=== PATIENT | male | born 1965 | race Caucasian/White ===

== ENCOUNTER 2022-06-23 15:38 | Emergency (ER) | payer MEDICARE, SELFPAY ==
[2022-06-23 15:43] VITALS: BP 191/97; PULSE 95; RESP 20; TEMP 36.6; O2SAT 98
--- NOTE | 2022-06-23 16:30 | ED.EYEPROB ---
HPI - Eye Problem General Chief complaint: Eye Problems Stated complaint: something in eye Time Seen by Provider: 06/23/22 16:26 Source: patient Mode of arrival: ambulatory Limitations: no limitations History of Present Illness HPI Narrative: Patient is a 56-year-old male with a history of hypertension, hyperlipidemia, insulin-dependent diabetes, presenting to the emergency department for evaluation of left eye pain. Patient reports he was cutting his grass when he felt a foreign body sensation in his left eye with immediate pain. Patient was wearing his corrective lenses at the time he was mowing. Patient states he then rubbed his eye with worsening pain. Patient denies blurry or double vision. Patient does report mild redness and tearing of the eye. No discharge. He is not up-to-date on a tetanus. Related Data Home Medications Medication Instructions Recorded Confirmed aspirin 81 mg tablet,delayed 81 mg PO DAILY 05/10/19 02/16/22 release niacin 500 mg tablet 500 mg PO DAILY 05/10/19 02/16/22 omeprazole magnesium 20 mg 20 mg PO DAILY 05/10/19 02/16/22 tablet,delayed release (Prilosec OTC) insulin NPH isoph U-100 human 100 10 unit subcut DAILY 01/12/22 02/16/22 unit/mL subcutaneous suspension (Novolin N NPH U-100 Insulin isophane) Allergies Allergy/AdvReac Type Severity Reaction Status Date / Time No Known Allergies Allergy Verified 05/12/22 09:32 Review of Systems Review of Systems: CONSTITUTIONAL: Denies fever HEENT: Left eye pain CARDIOVASCULAR: Denies chest pain RESPIRATORY: Denies cough or dyspnea. GASTROINTESTINAL: Denies abdominal pain SKIN: Denies rash MUSCULOSKELETAL: Denies back pain NEUROLOGIC: Denies headache [facility] Past Medical History Medical History COPD not affecting current episode of care Diabetic nephropathy Morbid obesity Other atherosclerosis of [place] arteries of extremities, right leg Family History Family History Mother Family history of malignant neoplasm Social History Social History Social History: Caffeine-coffee daily Years smoked: 20 Smoking status: Current every day smoker Tobacco type: cigarettes Alcohol intake: current Alcohol use details: socailly Substance use: never Lack of Transportation: No Lack of Food: Never True Current Housing: I Have Housing Concerned About Future Housing: No Difficulty Paying Gas/Electric Bills: No Difficulty Paying for Meds: No Currently Unemployed: No Education: High School Diploma/GED Difficulty w/ Childcare or Family Care: No Living arrangements: alone Exam Narrative: GENERAL: Awake, alert, conversant HEAD: Normocephalic, atraumatic. EYES:EOMI. Mild conjunctival injection left eye. No discharge. Right conjunctive is normal. No subconjunctival hemorrhage. No hyphema. Pupil is 2+ equal and reactive to light bilaterally. ENT: Nares clear, no rhinorrhea or epistaxis. Mucous membranes moist. NECK: Supple. CHEST: No respiratory distress, breathing even and non labored HEART: Regular rate, sinus rhythm ABDOMEN:Non distended, non tender EXTREMITIES: Normal range of motion. No edema. SKIN: Warm, dry, no rash. NEURO:No focal deficits. Alert and oriented x3 Course Vital Signs Vital signs: Vital Signs Temperature 36.6 C 06/23/22 15:43 Pulse Rate 95 06/23/22 15:43 Respiratory Rate 20 06/23/22 15:43 Blood Pressure 191/97 H 06/23/22 15:43 Pulse Oximetry 98 06/23/22 15:43 Oxygen Delivery Room Air 06/23/22 15:43 Temperature 36.6 C 06/23/22 15:43 Pulse Rate 95 06/23/22 15:43 Respiratory Rate 20 06/23/22 15:43 Blood Pressure 191/97 H 06/23/22 15:43 Pulse Oximetry 98 06/23/22 15:43 Oxygen Delivery Room Air 06/23/22 15:43 MDM - Eye Problem MDM Narrative Medical decision
[2022-06-23] MEDS: TETANUS,DIPHTHERIA,AC PERTUSSIS ADULT (0.5 ML) BOOSTRIX IM (17:23)
== END 2022-06-23 17:36 | disposition home or self-care (01) ==
PROVIDERS: Emergency Provider Emergency Medicine; PCP Family Medicine
DX: S05.02XA Injury of conjunctiva and corneal abrasion without foreign body, left eye, initial encounter (principal); E78.5 Hyperlipidemia, unspecified; I10 Essential (primary) hypertension; Z23 Encounter for immunization; J44.9 Chronic obstructive pulmonary disease, unspecified; E11.21 Type 2 diabetes mellitus with diabetic nephropathy; I70.291 Other atherosclerosis of native arteries of extremities, right leg; E66.01 Morbid (severe) obesity due to excess calories; Z68.27 Body mass index [BMI] 27.0-27.9, adult; F17.210 Nicotine dependence, cigarettes, uncomplicated; Z79.82 Long term (current) use of aspirin; Z79.4 Long term (current) use of insulin; W20.8XXA Other cause of strike by thrown, projected or falling object, initial encounter
CPT/HCPCS: 90471; 90715; 99283; A9270

== ENCOUNTER 2022-07-17 09:22 | Emergency (ER) | payer MEDICARE, SELFPAY ==
[2022-07-17 09:29] VITALS: BP 176/82; PULSE 113; RESP 16; TEMP 36.7; O2SAT 95
[2022-07-17] MEDS: LIDOCAINE/PRILOCAINE CREAM 2.5-2.5% TUBE 1 EACH TOPICAL (09:46)
--- NOTE | 2022-07-17 09:50 | ED.SKABFB ---
HPI - Skin/Abscess/Foreign Bdy General Chief complaint: Skin/Abscess/Foreign Body Stated complaint: abcess Time Seen by Provider: 07/17/22 09:24 History of Present Illness HPI narrative: Patient is a 57-year-old male with history of diabetes here for evaluation of pain redness and swelling around his rectum x5 days. Patient states he saw his primary care doctor upon onset and was diagnosed with a perianal abscess. He was told it was not ready to be drained at that point so he is put on Augmentin. Patient has been taking the Augmentin as prescribed but the redness and swelling has worsened. He denies any nausea, vomiting, constipation, diarrhea or abdominal pain. Related Data Home Medications Medication Instructions Recorded Confirmed aspirin 81 mg tablet,delayed 81 mg PO DAILY 05/10/19 02/16/22 release niacin 500 mg tablet 500 mg PO DAILY 05/10/19 02/16/22 omeprazole magnesium 20 mg 20 mg PO DAILY 05/10/19 02/16/22 tablet,delayed release (Prilosec OTC) insulin NPH isoph U-100 human 100 10 unit subcut DAILY 01/12/22 02/16/22 unit/mL subcutaneous suspension (Novolin N NPH U-100 Insulin isophane) Allergies Allergy/AdvReac Type Severity Reaction Status Date / Time No Known Allergies Allergy Verified 07/13/22 11:53 Review of Systems Review of Systems: Gen: Denies fevers or chills Eyes: Denies eye pain or visual change ENT: Denies congestion Respiratory: Denies shortness of breath or cough CV: Denies chest pain or palpitations GI: Denies abdominal pain nausea, emesis or diarrhea reports perianal pain and swelling. Denies burning, urgency, frequency or hematuria Musculoskeletal: Denies back pain or muscle pain Neuro: Denies numbness, tingling, weakness or focal weakness Skin: Denies rash Except as documented, all other systems reviewed and negative [facility] Past Medical History Medical History COPD not affecting current episode of care Diabetic nephropathy Morbid obesity Other atherosclerosis of [place] arteries of extremities, right leg Family History Family History Mother Family history of malignant neoplasm Social History Social History Social History: Caffeine-coffee daily Years smoked: 20 Smoking status: Current every day smoker Tobacco type: cigarettes Alcohol intake: current Alcohol use details: socailly Substance use: never Lack of Transportation: No Lack of Food: Never True Current Housing: I Have Housing Concerned About Future Housing: No Difficulty Paying Gas/Electric Bills: No Difficulty Paying for Meds: No Currently Unemployed: No Education: High School Diploma/GED Difficulty w/ Childcare or Family Care: No Living arrangements: alone Exam Narrative: Gen: Alert, oriented, no acute distress Eyes: EOMI, no icterus Pulm: Respirations even and unlabored, symmetric thorax expansion, no audible stridor or visible cyanosis CV: Regular rate per telemetry GI: No distension, no voluntary/involuntary guarding Neuro: AOx4, moves all extremities without apparent difficulty or weakness, follows commands MSK: 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 This area is tender to palpation, no spontaneous drainage is noted. Psych: Normal mood/affect, insight/judgement good, adequate fund of knowledge, recent/remote memory intact Course Vital Signs Vital signs: Vital Signs Temperature 98.1 F 07/17/22 09:29 Pulse Rate 113 H 07/17/22 09:29 Respiratory Rate 16 07/17/22 09:29 Blood Pressure 176/82 H 07/17/22 09:29 Pulse Oximetry 95 07/17/22 09:29 Oxygen Delivery Room Air 07/17/22 09:29 Temperature 98.1 F 07/17/22 09:29 Pulse Rate 113 H 07/17/22 09:29
[2022-07-17] MEDS: HYDROcodone/acetaminophen (*CRX) 5-325 MG TABLET 1 TAB PO (09:55)
[2022-07-17 11:12] VITALS: BP 133/76; PULSE 85; RESP 18; O2SAT 96
== END 2022-07-17 11:21 | disposition home or self-care (01) ==
PROVIDERS: Emergency Provider Physician Assistant; PCP Family Medicine
DX: K61.0 Anal abscess (principal); J44.9 Chronic obstructive pulmonary disease, unspecified; E11.40 Type 2 diabetes mellitus with diabetic neuropathy, unspecified; E66.01 Morbid (severe) obesity due to excess calories; Z68.27 Body mass index [BMI] 27.0-27.9, adult; I70.291 Other atherosclerosis of native arteries of extremities, right leg; Z79.82 Long term (current) use of aspirin; Z79.4 Long term (current) use of insulin; F17.210 Nicotine dependence, cigarettes, uncomplicated
CPT/HCPCS: 46040; 46050; 99283; A9270

== ENCOUNTER 2022-07-21 10:40 | Day surgery (SDC) | payer MEDICARE, SELFPAY ==
[2022-07-21] VITALS (8 sets, daily range): BP systolic 121–158; BP diastolic 69–97; PULSE 61–83; RESP 12–20; TEMP 36.6–36.7; O2SAT 98–100; BMI 25.8
--- NOTE | 2022-07-21 11:31 | ECG_ITS ---
Measurements Intervals [place] Rate: 68 P: 53 IA: 168 QRS: -23 QRSD: 105 T: 14 QT: 370 QTc: 395 Interpretive Statements SINUS RHYTHM DELAYED PRECORDIAL R/S TRANSITION BORDERLINE ECG NO PREVIOUS ECG AVAILABLE FOR COMPARISON Electronically Signed On 07-21-2022 12:03:07 CDT by Charan Signh D.O.
[2022-07-21] MEDS: LACTATED RINGERS 1,000 ML 30 ML IV CONT ×2 (12:10→14:56)
[2022-07-21] MEDS: KETOROLAC 15 MG/ML VIAL (*BKC) IV PUSH (12:17)
--- NOTE | 2022-07-21 12:20 | SUR.PREOP ---
1145-PT STATES NO HEALTH CHANGES SINCE ER VISIT 07/17/22.
[2022-07-21 12:30] LABS: Anion Gap 9 mmol/L (8-16); Blood Urea Nitrogen 15 mg/dL (9-20); Calcium 9.2 mg/dL (8.4-10.2); Carbon Dioxide 26 mmol/L (22-30); Chloride 97 mmol/L (98-107); Estimated Glomerular Filt Rate > 60; Glucose 302 mg/dL (65-110); Potassium 4.3 mmol/L (3.4-5.0); Sodium 132 mmol/L (137-145)
--- NOTE | 2022-07-21 13:16 | WPDHPUPDATE1 ---
History and Physical Update Update Date/Time: 07/21/22 13:16 History and Physical has been reviewed, including an updated exam of the patient. There are NO changes in the patient's condition. Risks, benefits, and alternatives have been discussed and questions answered. Patient agrees to proceed with procedure.
--- NOTE | 2022-07-21 13:42 | WPDANESEPPF ---
Anes - Initial Pre Proc Eval Procedure: Operation Date: 07/21/22 13:30 Proposed Procedures p Drainage Veronica-Rectal Abscess, Possible Fistulotomy or Seton Placement - Yusef Barth MD Date/Time: 07/21/22 13:42 Surgeon: Yusef Barth MD Pre Op Diagnosis: veronica-rectal abcess, fistula in ano Patient Data Age: 57 Gender: M Height: 1.83 m Weight: 86.5 kg Last Vital Signs Temp 98.1 F 07/21/22 11:00 Pulse 83 07/21/22 11:00 Resp 20 07/21/22 11:00 BP 148/97 H 07/21/22 11:00 Pulse Ox 98 07/21/22 11:00 O2 Del Method Room Air 07/21/22 11:00 Allergies Allergy/AdvReac Type Severity Reaction Status Date / Time No Known Allergies Allergy Verified 07/21/22 11:53 Home Medications Medication Instructions Recorded Confirmed Type aspirin 81 mg tablet,delayed 81 mg PO DAILY 05/10/19 07/21/22 History release niacin 500 mg tablet 500 mg PO DAILY 05/10/19 07/21/22 History omeprazole magnesium 20 mg 20 mg PO DAILY 05/10/19 07/21/22 History tablet,delayed release (Prilosec OTC) insulin syringe-needle U-100 0.3 See Rx Instructions .Route 07/01/20 02/16/22 Rx mL 29 gauge .COMPLEX #100 ea lancets 33 gauge (OneTouch Delica See Rx Instructions .Route 07/26/21 02/16/22 Rx Plus Lancet) .COMPLEX #100 ea blood sugar diagnostic (OneTouch See Rx Instructions .Route 09/10/21 02/16/22 Rx Verio test strips) .COMPLEX #100 strips lovastatin 10 mg tablet 10 mg PO DAILY #90 tabs 09/15/21 07/21/22 Rx fenofibrate 160 mg tablet See Rx Instructions .Route 12/30/21 07/21/22 Rx .COMPLEX #90 tabs insulin NPH isoph U-100 human 100 10 unit subcut DAILY 01/12/22 07/21/22 History unit/mL subcutaneous suspension (Novolin N NPH U-100 Insulin isophane) insulin syringe-needle U-100 0.3 #100 ea 03/28/22 Rx mL 30 gauge x 07/26 (TRUEplus Insulin) metformin 500 mg tablet,extended 500 mg PO .COMPLEX #450 tabs 05/02/22 07/21/22 Rx release 24hr hydrocodone 5 mg-acetaminophen 325 1 tablet PO Q6H PRN pain #120 tabs 06/29/22 07/21/22 Rx mg tablet lisinopril 5 mg tablet 5 mg PO DAILY #90 tabs 07/14/22 07/21/22 Rx amoxicillin 875 mg-potassium 1 tablet PO Q12H #14 tabs 07/15/22 07/21/22 Rx clavulanate 125 mg tablet Laboratory Tests 07/21/22 12:02 Sodium 132 L mmol/L (137-145) Potassium 4.3 mmol/L (3.4-5.0) Chloride 97 L mmol/L (98-107) Carbon Dioxide 26 mmol/L (22-30) Anion Gap 9 mmol/L (8-16) BUN 15 mg/dL (9-20) Creatinine 0.50 L mg/dL (0.7-1.3) Estim Creat Clear Calc Not Reportable Estimated GFR > 60 (59 - ) Glucose 302 H mg/dL (65-110) Calcium 9.2 mg/dL (8.4-10.2) Patient hx anesthesia problems: none Family hx anesthesia problems: none Results Review: All pre-operative results and documents have been reviewed as part of the pre-operative evaluation. [facility] Past Medical History Medical History COPD not affecting current episode of care Diabetic nephropathy Morbid obesity Other atherosclerosis of [place] arteries of extremities, right leg Family History Family History Mother Family history of malignant neoplasm Social History Social History Social History: Caffeine-coffee daily Years smoked: 20 Smoking status: Current every day smoker Tobacco type: cigarettes Alcohol intake: current Alcohol use details: socailly Substance use: never Lack of Transportation: No Lack of Food: Never True Current Housing: I Have Housing Concerned About Future Housing: No Difficulty Paying Gas/Electric Bills: No Difficulty Paying for Meds: No Currently Unemployed: No Education: High School Diploma/GED Difficulty w/ Childcare or Family Care: No Living arrangements: alone Anes - Eval Final PreProcedure Day of P
[2022-07-21] MEDS: ceFAZolin 2 GM/D5W 50 ML 2 GM/50 ML BAG IVPB (13:53)
[2022-07-21 15:06] LABS: Glucose Point of Care 277 mg/dl (65-105)
--- NOTE | 2022-07-21 15:16 | W.PM.PROC2 ---
Procedure Note - Detailed Date of Procedure 07/21/22 Pre-op Diagnosis veronica-rectal abcess, fistula in ano Post-op Diagnosis Other (Perirectal abscess with fistula in ANO, necrotizing soft tissue infection) Procedure Performed Drainage perirectal abscess with excisional debridement skin and subcutaneous 4 x 3 x 1 cm; placement seton x3 Surgeon Yusef Barth MD [employer] Carl HERNANDEZ Anesthesia General Indications Patient is a 57-year-old diabetic man who was in the emergency room 3 days ago with a 5 day history of perianal swelling and pain. He had incision and drainage performed by the emergency room provider but continued to have pain. He had taken a prescription for Augmentin provided by his primary care physician starting before the emergency room visit and continuing after. Two days after his emergency room visit he developed another area of drainage closer to the rectum. He was seen in the office this morning and found to have a substantial area of necrotic tissue with purulence that appeared to be associated with a perirectal abscess in the right posterior quadrant. He is taken to surgery then today for debridement and drainage of the abscess with either fistulotomy or seton placement. Findings Appears the patient had a perirectal abscess and then subsequently developed a necrotizing soft tissue infection of the area. There was liquefaction necrosis in the subcutaneous around the rectal wound. This required drainage of skin and subcutaneous of an area of 4 x 3 x 1 cm. Some of this tissue had burrowed into and undermined the skin. There was a lot of granulation tissue deep to the skin opening. There was clearly a fistula leading back to the posterior midline. There was also tracking to the area of the coccyx as well as laterally on the buttocks. The posterior midline fistula was drained with a seton. The other to tracts were drained with setons as well. All the necrotic tissue and purulent tissue were removed. The overall size of the wound however was not enlarged. Description of Procedure Patient was taken to surgery and induced into general anesthesia. He was placed in prone nkechi-knife position. The buttocks were taped apart. Prep and drape was carried out. I excised the remaining necrotic tissue after some of that had been excised in the office. I then found liquefaction necrosis and burrowing with skin undermining around the edges of the wound. There was a clear fistula leading to the posterior midline. This was demonstrated with a probe. There was also tracking from this right posterior wound towards the coccyx. There was additional tracking cephalad and lateral on the buttocks. I initially addressed the posterior midline fistula. I passed a curved clamp through the fistula tract and out the posterior midline at the dentate line. A red vessel loop was used as a seton and was passed back through the tract and out the wound. I then proceeded to excise the remainder of the necrotic tissue and debride any tissue hiding purulent collections. Some of the purulent appearing tissue was sent to pathology for tissue culture. I tried not to excise any more overlying skin then necessary. Once the abscess wound in the right posterior quadrant was adequately debrided, I then probed other aspects of the wound. Surprisingly, there was no tracking to where the incision and drainage had been done in the emergency room on 07/17/2022. There was tracking back towards the coccyx. This was a long tract of about 7 cm. I made a counter incision at the end of the tract and passed a seton through this tract as well. Further probing the open wound, the last tract was found proceeding cephalad and lateral. Counter incision was made here as well. A 3rd seton was passed through this tract. I checked all aspects of the wound and found no evidence of any additional purulent drainage. 2-0 silk was used to tie the ends of each seton to itself so they were cir
[2022-07-21] MEDS: oxyCODONE HCL (*CRX) 5 MG TAB IR PO (15:54)
--- NOTE | 2022-07-21 16:44 | SUR.PHASEII ---
Spoke with Dr. Barth regarding patient's output from surgical site. Dr. Barth state this was expected and gave instructions on what patient should use for dressing changes once discharged.
== END 2022-07-21 17:10 | disposition home or self-care (01) ==
PROVIDERS: Anesthesiology; PCP Family Medicine; Visit Provider Surgery
PROC: (CPT 46040; principal; 2022-07-21 13:30)
DX: K61.1 Rectal abscess (principal); J44.9 Chronic obstructive pulmonary disease, unspecified; E11.21 Type 2 diabetes mellitus with diabetic nephropathy; E11.51 Type 2 diabetes mellitus with diabetic peripheral angiopathy without gangrene; Z79.82 Long term (current) use of aspirin; Z79.4 Long term (current) use of insulin; Z79.84 Long term (current) use of oral hypoglycemic drugs; Z79.891 Long term (current) use of opiate analgesic; F17.210 Nicotine dependence, cigarettes, uncomplicated
CPT/HCPCS: 11042; 46020; 36415; 80048; 82948; 87070; 87075; 87205; 93005; A9270; J0330; J0690; J1885; J2250; J2405; J2704; J3010; J7120

== ENCOUNTER 2023-06-07 12:42 | Outpatient (CLI) | payer MEDICARE, SELFPAY ==
--- NOTE | ~2023-06-07 | CT_ITS ---
EXAMINATION: CT lung screening DATE: 06/07/2023 12:56 INDICATION: Personal history of nicotine dependence TECHNIQUE: Computed tomography (CT) of the chest was performed without intravenous contrast. The dose -length product was 120.32 mGy-cm. Automated exposure control and iterative reconstruction technique were employed. COMPARISON: None FINDINGS: Lung bases are unremarkable. Mild thoracic lymphadenopathy, likely reactive. No significant pleural or pericardial effusion. There is a left adrenal mass partially visualized, likely benign ad enoma. There is emphysema. No endobronchial lesions. No pneumothorax. There are small pulmonary nodul es measuring 2 mm or less in the upper lobes. There is calcified granuloma in the right upper lobe. T here is apical pleural thickening/scarring. There is a wedge compression fracture of T9 and mild supe rior endplate compression deformities of T7, T8 and T10, likely chronic. Accentuated thoracic kyphosi s. IMPRESSION: 1. . Lung-RADS category 2: Benign appearance or behavior. Continue annual screening with noncontrast low-dose chest CT in 12 months. Reviewed, dictated and finalized at location B. IMPRESSION: 1. . Lung-RADS category 2: Benign appearance or behavior. Continue annual scree yesica with noncontrast low-dose chest CT in 12 months.
== END 2023-06-07 12:43 ==
LOC: GOSHIMG 12:43
PROVIDERS: PCP Family Medicine; Visit Provider Family Medicine
DX: Z12.2 Encounter for screening for malignant neoplasm of respiratory organs (principal); Z87.891 Personal history of nicotine dependence
CPT/HCPCS: 71271

== ENCOUNTER 2023-08-23 00:30 | Day surgery (SDC) | payer MEDICARE, SELFPAY ==
[2023-08-08 14:00] VITALS: BMI 28.3
--- NOTE | 2023-08-08 14:11 | PC.NURSE ---
Encouraged pt to call prescribing doctor in regards to his insulin and diabetic medications. Pt stated he would probably hold all diabetic medications while taking prep and day of procedure.
[2023-08-23 09:30] VITALS: BP 143/75; PULSE 90; RESP 16; TEMP 36.9; O2SAT 98
[2023-08-23] MEDS: LACTATED RINGERS 1,000 ML 150 ML IV CONT (09:40)
[2023-08-23 09:48] LABS: Glucose Point of Care 137 mg/dl (65-105)
--- NOTE | 2023-08-23 10:17 | WPDANESEPPF ---
Anes - Initial Pre Proc Eval Procedure: Operation Date: 08/23/23 11:00 Proposed Procedures p Colonoscopy - Scotty Moran MD Date/Time: 08/23/23 10:17 Surgeon: Scotty Moran MD Pre Op Diagnosis: Personal HX colon polyps Patient Data Age: 58 Gender: M Height: 1.8 m Weight: 88.5 kg Last Vital Signs Temp 98.5 F 08/23/23 09:30 Pulse 90 08/23/23 09:30 Resp 16 08/23/23 09:30 BP 143/75 H 08/23/23 09:30 Pulse Ox 98 08/23/23 09:30 O2 Del Method Room Air 08/23/23 09:30 Allergies Allergy/AdvReac Type Severity Reaction Status Date / Time lisinopril AdvReac Diarrhea Verified 08/23/23 09:29 Home Medications Medication Instructions Recorded Confirmed Type aspirin 81 mg tablet,delayed 81 mg PO DAILY 05/10/19 08/08/23 History release niacin 500 mg tablet 500 mg PO DAILY 05/10/19 08/08/23 History omeprazole magnesium 20 mg 20 mg PO DAILY 05/10/19 08/08/23 History tablet,delayed release (Prilosec OTC) insulin syringe-needle U-100 0.3 #100 ea 03/28/22 08/08/23 Rx mL 30 gauge x 5/16 (TRUEplus Insulin) lancets 33 gauge (OneTouch Delica See Rx Instructions .Route 09/26/22 08/08/23 Rx Plus Lancet) .COMPLEX #100 ea insulin syringe-needle U-100 0.3 See Rx Instructions .Route 10/05/22 08/08/23 Rx mL 29 gauge .COMPLEX #100 ea metformin 500 mg tablet,extended 500 mg PO .COMPLEX #450 tabs 11/02/22 08/08/23 Rx release 24hr (osmotic) blood sugar diagnostic (OneTouch See Rx Instructions .Route 02/06/23 08/08/23 Rx Verio test strips) .COMPLEX #100 strips lovastatin 10 mg tablet 10 mg PO DAILY #90 tabs 03/20/23 08/08/23 Rx fenofibrate 160 mg tablet See Rx Instructions .Route 07/07/23 08/08/23 Rx .COMPLEX #90 tabs irbesartan 75 mg tablet 75 mg PO DAILY #100 tabs 07/10/23 08/08/23 Rx hydrocodone 5 mg-acetaminophen 325 1 tablet PO Q6H PRN pain #120 tabs 08/01/23 08/08/23 Rx mg tablet insulin NPH isoph U-100 human 100 10 unit (0.1 mL) subcut DAILY #10 08/01/23 08/08/23 Rx unit/mL subcutaneous suspension mL (Novolin N NPH U-100 Insulin isophane) dulaglutide 1.5 mg/0.5 mL 1.5 mg subcut WEEKLY 08/08/23 08/08/23 History subcutaneous pen injector (Trulicity) multivit,calcium,min-folic acid 1 tablet PO DAILY 08/08/23 08/08/23 History 240 mcg-D3 25 mcg-lycop 300 mcg tablet (One A Day Men Complete) naproxen sodium 220 mg capsule 220 mg PO BID PRN Pain 08/08/23 08/08/23 History (Aleve) omega 8-kci-awk-fish oil 100 1 cap PO DAILY 08/08/23 08/08/23 History mg-160 mg-1,000 mg capsule (Fish Oil) Laboratory Tests 08/23/23 09:39 POC Capillary Glucose 137 H mg/dl (65-105) Patient hx anesthesia problems: none Family hx anesthesia problems: none Results Review: All pre-operative results and documents have been reviewed as part of the pre-operative evaluation. [facility] Past Medical History Medical History Abscess of buttock COPD not affecting current episode of care Diabetic nephropathy Morbid obesity Other atherosclerosis of [place] arteries of extremities, right leg Surgical History Surgical History History of incision and drainage Drainage perirectal abscess w/ excisional debridement skin and subcutaneous tissue [id number]; placement seton x3 on 07/21/22 Family History Family History Mother Family history of malignant neoplasm Social History Social History Social History: Caffeine-coffee daily Smoking packs per day: 1 Smoking cigarettes per day: 20.0 Years smoked: 25 Smoking pack-years: 25.00 Smoking status: Current every day smoker Tobacco type: cigarettes Alcohol intake: current Drinks per week: 6 Alcohol use details: socailly Substance use: never [place]
--- NOTE | 2023-08-23 10:22 | PM.HPGS ---
History of Present Illness History of Present Illness Consent: Risks, benefits, and alternatives have been discussed and questions answered. Patient agrees to proceed with procedure. Chief complaint: Personal HX colon polyps Narrative: Kevin Rodriguez is a 58 year old male with colon polyp 2016 Review of Systems Review of Systems: All systems reviewed & are unremarkable except as noted in HPI and below PMFSH Past Medical History Medical History Abscess of buttock COPD not affecting current episode of care Diabetic nephropathy Morbid obesity Other atherosclerosis of [place] arteries of extremities, right leg Surgical History Surgical History History of incision and drainage Drainage perirectal abscess w/ excisional debridement skin and subcutaneous tissue [id number]; placement seton x3 on 07/21/22 Family History Family History Mother Family history of malignant neoplasm Social History Social History Social History: Caffeine-coffee daily Smoking packs per day: 1 Smoking cigarettes per day: 20.0 Years smoked: 25 Smoking pack-years: 25.00 Smoking status: Current every day smoker Tobacco type: cigarettes Alcohol intake: current Drinks per week: 6 Alcohol use details: socailly Substance use: never Lack of Transportation: No Lack of Food: Never True Current Housing: I Have Housing Concerned About Future Housing: No Difficulty Paying Gas/Electric Bills: No Difficulty Paying for Meds: No Currently Unemployed: No Education: High School Diploma/GED Difficulty w/ Childcare or Family Care: No Living arrangements: with family Spiritual care concerns: No Meds Home Medications and Allergies Home Medications Medication Instructions Recorded Confirmed Type aspirin 81 mg tablet,delayed 81 mg PO DAILY 05/10/19 08/08/23 History release niacin 500 mg tablet 500 mg PO DAILY 05/10/19 08/08/23 History omeprazole magnesium 20 mg 20 mg PO DAILY 05/10/19 08/08/23 History tablet,delayed release (Prilosec OTC) insulin syringe-needle U-100 0.3 #100 ea 03/28/22 08/08/23 Rx mL 30 gauge x 07/26 (TRUEplus Insulin) lancets 33 gauge (OneTouch Delica See Rx Instructions .Route 09/26/22 08/08/23 Rx Plus Lancet) .COMPLEX #100 ea insulin syringe-needle U-100 0.3 See Rx Instructions .Route 10/05/22 08/08/23 Rx mL 29 gauge .COMPLEX #100 ea metformin 500 mg tablet,extended 500 mg PO .COMPLEX #450 tabs 11/02/22 08/08/23 Rx release 24hr (osmotic) blood sugar diagnostic (OneTouch See Rx Instructions .Route 02/06/23 08/08/23 Rx Verio test strips) .COMPLEX #100 strips lovastatin 10 mg tablet 10 mg PO DAILY #90 tabs 03/20/23 08/08/23 Rx fenofibrate 160 mg tablet See Rx Instructions .Route 07/07/23 08/08/23 Rx .COMPLEX #90 tabs irbesartan 75 mg tablet 75 mg PO DAILY #100 tabs 07/10/23 08/08/23 Rx hydrocodone 5 mg-acetaminophen 325 1 tablet PO Q6H PRN pain #120 tabs 08/01/23 08/08/23 Rx mg tablet insulin NPH isoph U-100 human 100 10 unit (0.1 mL) subcut DAILY #10 08/01/23 08/08/23 Rx unit/mL subcutaneous suspension mL (Novolin N NPH U-100 Insulin isophane) dulaglutide 1.5 mg/0.5 mL 1.5 mg subcut WEEKLY 08/08/23 08/08/23 History subcutaneous pen injector (Trulicity) multivit,calcium,min-folic acid 1 tablet PO DAILY 08/08/23 08/08/23 History 240 mcg-D3 25 mcg-lycop 300 mcg tablet (One A Day Men Complete) naproxen sodium 220 mg capsule 220 mg PO BID PRN Pain 08/08/23 08/08/23 History (Aleve) omega 4-oma-ieg-fish oil 100 1 cap PO DAILY 08/08/23 08/08/23 History mg-160 mg-1,000 mg capsule (Fish Oil) Allergies Allergy/AdvReac Type Severity Reaction Status Date / Time lisinopril AdvReac Diarrhea Verified 08/23/23
[2023-08-23 10:43] VITALS: BP 117/71; PULSE 84; RESP 25; O2SAT 97
[2023-08-23 10:53] VITALS: BP 121/78; PULSE 90; RESP 22; O2SAT 99
[2023-08-23 10:55] LABS: Glucose Point of Care 128 mg/dl (65-105)
[2023-08-23 11:03] VITALS: BP 125/77; PULSE 76; RESP 21; O2SAT 99
== END 2023-08-23 11:16 | disposition home or self-care (01) ==
PROVIDERS: PCP Family Medicine; Referring Provider Family Medicine; Visit Provider Internal Medicine Gastroenterology
PROC: 0DJD8ZZ Inspection of Lower Intestinal Tract, Via Natural or Artificial Opening Endoscopic (ICD-10-PCS; CPT 45378; principal; 2023-08-23 11:00)
DX: Z12.11 Encounter for screening for malignant neoplasm of colon (principal); K63.5 Polyp of colon; K64.8 Other hemorrhoids; J44.9 Chronic obstructive pulmonary disease, unspecified; E11.21 Type 2 diabetes mellitus with diabetic nephropathy; I70.291 Other atherosclerosis of native arteries of extremities, right leg; Z79.82 Long term (current) use of aspirin; Z79.4 Long term (current) use of insulin; Z79.84 Long term (current) use of oral hypoglycemic drugs; Z79.85 Long-term (current) use of injectable non-insulin antidiabetic drugs; F17.210 Nicotine dependence, cigarettes, uncomplicated
CPT/HCPCS: 45385; 82948; 88305; J2001; J2704; J7120